=== PATIENT | female | born 1945 | race Caucasian/White ===

== ENCOUNTER 2020-10-12 00:22 | Emergency (ER) | payer MEDICARE, OTHER ==
[~2020-10-12] VITALS: Ht 167.6 cm; Wt 72.6 kg
[~2020-10-12 00:22] MED LIST: ADULT LOW DOSE81 MG; ALPRAZOLAM; ASPIRIN81 M2 PO; ATENOLOL 25 MG25 M1; FISHOIL; HYDROXYZINE HCL10 M1 PO; KEFLEX500 MG PO; NORCO 5-325 TA1 EACH PO; PEPCID20 MG PO; PEPCID40 MG PO; PRAVACHOL; PRAVACHOL40 MG; PULMICORT0.5 MG/22 INH; TOPROL XL100 MG PO; TOPROL XL50 MG PO; XANAX 0.5 MG0.5 M1 PO
[2020-10-12] MEDS ORDERED: HYDROCODON-ACE1 EAC7 PO (00:34)
[2020-10-12] MEDS ORDERED: TRAMADOL 50 MG50 MG PO (00:34)
[2020-10-12] MEDS ORDERED: NEXIUM40 MG PO (00:36)
[2020-10-12 00:44] LABS: ABSOLUTE BASOPHILS 0.1 thou/uL (0.0-0.2); ABSOLUTE EOSINOPHILS 0.3 thou/uL (0.0-0.7); ABSOLUTE LYMPHOCYTES 4.7 thou/uL (0.8-5.3); ABSOLUTE MONOCYTES 0.9 thou/uL (0.0-1.2); ABSOLUTE NEUTROPHILS 4.6 thou/uL (1.6-8.1); BASOPHILS 0.9 %; EOSINOPHILS 3.1 %; HEMATOCRIT 44.6 % (37.0-47.0); LYMPHOCYTES 43.8 %; MCH 29.8 pg (26.0-34.0); MCHC 33.6 g/dL (28.0-37.0); MCV 88.7 fL (80.0-100.0); MONOCYTES 8.5 %; MPV 6.8 fl. (7.2-11.1); NUCLEATED RBCS 0 /100WBC; PLATELET COUNT* 354 thou/uL (150-400); POLYS 43.7 %; RBC 5.03 mil/uL (4.20-5.00); RDW-CV 14.2 % (10.5-14.5); WBC 10.6 thou/uL (4.0-11.0)
[2020-10-12 01:03] LABS: CALCIUM 9.3 mg/dL (8.5-10.1); CREATININE 0.9 mg/dL (0.6-1.3); POTASSIUM 3.4 mmol/L (3.5-5.1)
[2020-10-12 01:07] LABS: URINE BILIRUBIN NEGATIVE (Negative); URINE BLOOD NEGATIVE (Negative); URINE CLARITY CLEAR; URINE COLOR YELLOW; URINE GLUCOSE-RANDOM NEGATIVE (Negative); URINE KETONES NEGATIVE (Negative); URINE LEUKOCYTES-REFLEX NEGATIVE (Negative); URINE NITRITE-REFLEX NEGATIVE (Negative); URINE PROTEIN 2+ (Negative); URINE SPECIFIC GRAVITY >= 1.030 (1.005-1.030); URINE UROBILINOGEN 0.2 E.U./dl (0.2-1.0)
[2020-10-12 01:14] LABS: ALBUMIN 4.1 g/dL (3.4-5.0); MAGNESIUM 2.2 mg/dL (1.8-2.4); TOTAL BILIRUBIN 0.5 mg/dL (<0.1-1.0)
[2020-10-12 01:35] LABS: SQUAMOUS 4-10 Moderate /LPF (0-3)
[2020-10-12 01:36] LABS: HYALINE CASTS 0-3 Few /LPF (None Seen); URINE RBC None Seen /HPF (0-2); URINE WBC-REFLEX 0-5 Rare /HPF (0-5)
[2020-10-12 01:37] LABS: BACTERIA-REFLEX 1-9 Few /HPF (None Seen); CRYSTALS None Seen /LPF (None Seen)
[2020-10-12] MEDS ORDERED: NORCO5 PO (03:15)
[2020-10-12 03:28] VITALS: BP 147/70
--- NOTE | 2020-10-13 09:41 | EKG ---
[place] [address] ELECTROCARDIOGRAM REPORT Name: NOEMI DE LA GARZA Room: [facility]#: [id number] Admission: 10/12/20 Attend Phys: Discharge: 10/12/20 Date of : 43 Date of Service: 10/12/20 0036 Report #: [id number] THIS REPORT FOR: //name// [facility] ED Test Date: 2020-10-12 Test Time: 00:36:14 Pat Name: NOEMI DE LA GARZA Department: Room: Gender: Ampoule Examiner: : 1945 Requested By: Lacey Sharp Order Number: [id number] MD: Heath Hu Measurements Intervals Treichlers Rate: 77 P: 37 WA: 182 QRS: -4 QRSD: 102 T: 22 QT: 409 QTc: 463 Interpretive Statements Sinus rhythm Abnormal R-wave progression, late transition Left ventricular hypertrophy Artifact in lead(s) I,II,III,aVR,aVL,V1,V2,V3,V4,V5 Compared to ECG 07/15/2016 14:49:32 Left ventricular hypertrophy now present Electronically Signed On 10-13-2020 9:41:42 CDT by Heath Hu [email or web address] <ELECTRONICALLY SIGNED> By: Heath Hu MD, [facility] 10/13/20 0941 Heath Hu MD, [facility] /EPI
== END 2020-10-12 03:28 | disposition home or self-care (01) ==
LOC: M.ERS 00:22
PROVIDERS: Emergency Medicine
DX: I10 Essential (primary) hypertension (principal); M79.662 Pain in left lower leg; Z96.643 Presence of artificial hip joint, bilateral; Z90.710 Acquired absence of both cervix and uterus; Z90.49 Acquired absence of other specified parts of digestive tract; Z90.89 Acquired absence of other organs

== ENCOUNTER 2021-04-10 21:45 | Emergency (ER) | payer MEDICARE, OTHER ==
[~2021-04-10] VITALS: Ht 167.6 cm; Wt 72.6 kg
[~2021-04-10 21:45] MED LIST changes: +HYDROCODON-ACE1 EAC7 PO; +NEXIUM40 MG PO; +NORCO5 PO; +TRAMADOL 50 MG50 MG PO
[2021-04-10 23:05] VITALS: BP 233/89
== END 2021-04-10 23:05 | disposition home or self-care (01) ==
LOC: M.ERS 21:45
DX: R09.89 Other specified symptoms and signs involving the circulatory and respiratory systems (principal); I10 Essential (primary) hypertension; Z90.710 Acquired absence of both cervix and uterus; Z90.89 Acquired absence of other organs